=== PATIENT | female | born 1980 | race African-American/Black ===

== ENCOUNTER 2017-05-02 14:45 | Emergency (ER) | payer MEDICARE, OTHER ==
[~2017-05-02 14:45] MED LIST: PREN1CHW7 PO; TERC.4%V VAGINAL
[2017-05-02 14:46] VITALS: BP 122/71; PULSE 86; RESP 19; TEMP 98.1; O2SAT 99
[2017-05-02] MEDS ORDERED: NON-500T10 PO (17:25)
[2017-05-02] MEDS ORDERED: TYLETAB34 PO (17:51)
[2017-05-02] MEDS ORDERED: MACR100C2 PO (17:51)
== END 2017-05-02 17:10 | disposition left against medical advice (07) ==
LOC: NED 14:45
DX: Z53.21 Procedure and treatment not carried out due to patient leaving prior to being seen by health care provider (principal)
CPT/HCPCS: 99281

== ENCOUNTER 2017-05-02 15:50 | Emergency (ER) | payer MEDICARE, OTHER ==
[~2017-05-02] VITALS: Ht 152.4 cm; Wt 44.4 kg
[2017-05-02 15:57] VITALS: BP 109/54; PULSE 83; TEMP 98.7; O2SAT 100
[2017-05-02 16:50] LABS: BLOOD, URINE SMALL (NEG); GLUCOSE,URINE NEG (NEG); KETONE, URINE NEG (NEG); NITRITE,URINE NEG (NEG); PH, URINE 6.5 (5.0-8.5)
[2017-05-02 16:58] LABS: METHOD OF COLLECTION CLEAN CATCH; URINE COLOR YELLOW (YELLW/STRAW)
[2017-05-02 17:00] LABS: BACTERIA, URINE FEW /hpf; COMMENT (UR) CULTURE INDICATED; CULTURE IF INDICATED CULTURE INDICATED
[2017-05-02 17:01] LABS: COMMENT2 (UR) MUCOUS PRESENT
[2017-05-02] MEDS ORDERED: NON-500T10 PO (17:25)
[2017-05-02] MEDS ORDERED: MACR100C2 PO (17:51)
[2017-05-02] MEDS ORDERED: TYLETAB34 PO (17:51)
--- NOTE | 2017-05-02 17:52 | PD ---
HPI . Left low back pain Chief Complaint: Related Problem Time Seen by Provider: 17:16 Travel History International Travel<30 days: No Contact w/Intl Traveler<30days: No Traveled to known affect area: No History of Present Illness HPI The patient presents with a chief complaint of left low back pain. Onset was a couple days ago. She denies any known injury. She does state that the pain is exacerbated by movement. Pain has been unrelieved by Tylenol. She states that she has had no urinary difficult time getting comfortable in the lying position and is thus having trouble sleeping. She rates the pain 10/10. She denies any urinary tract symptoms such as dysuria, frequency or urgency. She is 11 weeks but denies any pelvic pain, unusual discharge, vaginal bleeding. She has sought care. [facility] Past Medical History Medical History: Denies Significant Hx Diminished Hearing: No Tetanus Vaccination: Unknown Influenza Vaccination: No ?: LMP: 02/06/17 : 5 Para: 3 : 1 Past Surgical History Section: Yes Oral Surgery: Yes (right arm repair) Other Surgery: Yes Social History Alcohol Use: No Tobacco Use: Yes Substance Use: No Allergies-Medications (Allergen,Severity, Reaction): Coded Allergies: No Known Allergies (Verified , 05/02/17) Reported Meds & Prescriptions Reported Meds & Active Scripts Active Vitafol Gummies 3.33-0.333-34.8 mg ( Vit W/ Ferric Phospha) 1 Chw Chw 3 Tab PO DAILY Reported Non-Aspirin Extra Strength (Acetaminophen) 500 Mg Tab 500 Mg PO Q4-6H PRN Review of Systems Except as stated in HPI: all other systems reviewed are Neg General / Constitutional: No: Fever, Chills Gastrointestinal: No: Nausea, Vomiting, Diarrhea, Abdominal Pain Genitourinary: No: Urgency, Frequency, Dysuria, Flank Pain, Discharge, Vaginal Bleeding Musculoskeletal: Positive: Pain (left low back pain) Physical Exam Narrative GENERAL: This patient is awake and alert and in no acute distress. She obviously has pain with movement however. SKIN: Warm and dry with no rash or lesions. HEAD: Normocephalic/atraumatic. EYES: Pupils are equal. Extraocular movements are intact. NECK: Neck is supple with full range of motion. CARDIOVASCULAR: Heart sounds are normal. RESPIRATORY: Lungs are clear with good air movement throughout. ABDOMEN: Bowel sounds positive. Soft and nontender. MUSCULOSKELETAL: She is point tender just above the left posterior iliac crest. NEUROLOGICAL: Nonfocal. PSYCHIATRIC: Appropriate mood and affect. Data Data Last Documented VS Vital Signs Date Time Temp Pulse Resp B/P (MAP) Pulse Ox O2 Delivery O2 Flow Rate FiO2 05/02/17 15:57 98.7 83 109/54 (72) 100 Orders Orders Urinalysis - C+S If Indicated (05/02/17 16:14) Urine Culture (05/02/17 16:40) Ed Poc Ultrasound (05/02/17 17:16) Labs Laboratory Tests Test 05/02/17 16:40 Urine Collection Type CLEAN CATCH Urine Color YELLOW Urine Turbidity SLIGHT Urine pH 6.5 Urine Specific [place] 1.021 Urine Protein TRACE mg/dL Urine Glucose (UA) NEG mg/dL Urine Ketones NEG mg/dL Urine Occult Blood SMALL Urine Nitrite NEG Urine Bilirubin NEG Urine Leukocyte Esterase MOD Urine RBC 4-9 /hpf Urine WBC 9-14 /hpf Urine Squamous Epithelial Cells 6-8 /hpf Urine Amorphous Sediment FEW Urine Bacteria FEW /hpf Microscopic Urinalysis Comment CULTURE INDICATED Urine Collection Time 1640 [facility] Medical Decision Making Medical Screen Exam Complete: Yes Emergency Medical Condition: Yes Differential Diagnosis Differential diagnosis includes but is not limited to muscular low back pain, DDD, spinal stenosis, epidural abscess, sciatica, kidney infection or stone. Narrative Course This patient presents with left low back pain. It is clearly muscular on exam. Laboratory Tests Test 05/02/17 16:40 Urine Collection Type CLEAN CATCH Urine Color YELLOW Urine Turbidity SLIGHT Urine pH 6.5 Urine Specific [place] 1.021 Urine Protein TRACE mg/dL Urine Glucose (UA) NEG mg/dL Urine Ketones NEG mg/dL Urine Occult Blood SMALL Urine Nitrite NEG Urine Bilirubin NEG Urine Leukocyte Esterase MOD Urine RBC 4-9 /hpf Urine WBC 9-14 /hpf Urine Squamous Epithelial Cells 6-8 /hpf Urine Amorphous Sediment FEW Urine Bacteria FEW /hpf Microscopic Urinalysis Comment CULTURE INDICATED Urine Collection Time 1640 She is and does have some white cells and leukocyte esterase in her urine. This will be treated with Macrobid. Procedures Procedure Narrative Emergency Department Pelvic ultrasound was performed with patient consent. The curvilinear probe was used in the transverse and sagittal views within the suprapubic region revealing single intrauterine . movement was noted. heart rate was also noted. Diagnosis Primary Impression: Low back pain Qualified Codes: M54.5 - Low back pain Additional Impression: Cystitis Patient Instructions: Acute Low Back Pain (DC), General Instructions, Urinary Tract Infection in (GEN) Scripts Acetaminophen-Codeine (Tylenol-Codeine #3) 300-30 mg Tab 1 TAB PO Q4H Y for PAIN, #15 TAB 0 Refills Prov: Maria Fernanda Sprague MD 05/02/17 Nitrofurantoin Monohydrate Macrocrystals (Macrobid) 100 Mg Cap 100 MG PO BID for Infection for 5 Days, #10 CAP 0 Refills Prov: Maria Fernanda Sprague MD 05/02/17 Disposition: 01 DISCHARGE HOME Condition: Stable Maria Fernanda Sprague MD May 02, 2017 17:52
== END 2017-05-02 18:09 | disposition home or self-care (01) ==
LOC: PHED 15:50
DX: O26.891 Other specified pregnancy related conditions, first trimester (principal); O23.11 Infections of bladder in pregnancy, first trimester; M54.5 Low back pain; B96.89 Other specified bacterial agents as the cause of diseases classified elsewhere; Z3A.11 11 weeks gestation of pregnancy; Z72.0 Tobacco use
CPT/HCPCS: 81001; 87086; 99284

== ENCOUNTER 2017-05-20 09:18 | Emergency (ER) | payer MEDICARE, OTHER ==
[~2017-05-20] VITALS: Ht 152.4 cm; Wt 42.6 kg
[~2017-05-20 09:18] MED LIST changes: -TERC.4%V VAGINAL
--- NOTE | 2017-05-20 10:22 | PD ---
HPI Chief Complaint dizziness/headache Date Seen: May 20, 2017 Time Seen: 10:05 (Jorden Wylie MD R2) Travel History International Travel<30 Days: No Contact w/Intl Traveler<30Days: No (Jorden Wylie MD R2) History of Present Illness HPI 37-year-old with BASILIA November 07 trimester ultrasound and last menstrual period on January 17, placing her in about 14-15 weeks gestation presenting with a 3 day history of mild frontal headache, lightheadedness. She also notes blurry vision off and on for the last couple days. She denies leakage of fluid. Has had some spotting but no gross blood vaginally. Denies vaginal discharge. A couple times in the last few weeks she's felt episodes of it being hard to catch her breath. Denies chest pain. She also endorses some intermittent pelvic cramping for the last few days, very mild. (Jorden Wylie MD R2) History Past Medical History Medical History: Denies Significant Hx (Jorden Wylie MD R2) Obstetric History Obstetric History All deliveries by C/S: 1st - distress 2nd - pre-eclampsia 3rd - repeat C/S (Jorden Wylie MD R2) Past Surgical History Narrative Surgical C sections (Jorden Wylie MD R2) Family History Family History: Negative (Jorden Wylie MD R2) Social History Alcohol Use: No Tobacco Use: No Substance Abuse: No (Jorden Wylie MD R2) Allergies-Medications (Allergen,Severity, Reaction): Coded Allergies: No Known Allergies (Verified , 05/16/17) Home Meds Active Scripts Vit W/ Ferric Phospha (Vitafol Gummies 3.33-0.333-34.8 mg) 1 Chw Chw, 3 TAB PO DAILY, #90 BOTTLE 11 Refills Prov:Missy Alberto 03/26/17 Discontinued Reported Medications Acetaminophen (Non-Aspirin Extra Strength) 500 Mg Tab, 500 MG PO Q4-6H Y for PAIN SCALE 1 TO 10, TAB 0 Refills 05/02/17 Discontinued Scripts Acetaminophen-Codeine (Tylenol-Codeine #3) 300-30 mg Tab, 1 TAB PO Q4H Y for PAIN, #15 TAB 0 Refills Prov:Maria Fernanda Sprague MD 05/02/17 Nitrofurantoin Monohydrate Macrocrystals (Macrobid) 100 Mg Cap, 100 MG PO BID for Infection for 5 Days, #10 CAP 0 Refills Prov:Maria Fernanda Sprague MD 05/02/17 Review of Systems Except as stated in HPI: all other systems reviewed are Neg (Jorden Wylie MD R2) Physical Exam Narrative GENERAL: Well-nourished, well-developed patient. SKIN: Warm and dry. HEAD: Normocephalic and atraumatic. EYES: No scleral icterus. No injection or drainage. ENT: No nasal drainage noted. Mucous membranes pink. Airway patent. CARDIOVASCULAR: Regular rate and rhythm without murmurs, gallops, or rubs. Auscultated reclined at 45 degrees and sitting upright. RESPIRATORY: Breath sounds equal bilaterally. No accessory muscle use. ABDOMEN/GI: Abdomen soft, non-tender, no rebound, no guarding GENITOURINARY: Normal external genitalia. Cervix closed/thick/high. FHT's: 150s EXTREMITIES: No cyanosis or edema. NEUROLOGICAL: Awake and alert. Motor and sensory grossly within normal limits. Normal speech. (Jorden Wylie MD R2) Data Data Vital Signs Reviewed: Yes (Jorden Wylie MD R2) MDM Medical Record Reviewed: Yes Narrative Course / MDM 37 yo at 14-15 weeks presenting with lightheadedness, mild headache, and intermittent cramping suggestive of dehydration #1 IUP FHTs reassuring - Establishing with [facility] on 05/21. Advised to keep that appointment. #2 dehydration UA not suggestive of UTI, exam benign, cervix closed. Dehydration would explain all symptoms. - Oral hydration - Keep OB f/u as above #3 vaginal spotting By history some spotting for a few days, no gross bleeding, no blood on glove during exam - F/u as outpatient (Jorden Wylie MD R2) Attending Attestation I personally evaluated and examined the patient with the resident. I performed all baer decision making portions. (Missy Gooden MD) Diagnosis Diagnosis: Primary Impression: Dehydration Additional Impressions: Vaginal spotting Qualified Codes: Z3A.14 - 14 weeks gestation of Ruled Out: Cystitis, labor Disposition: DISCHARGE HOME Condition: Good Patient Instructions: General Instructions, Diet (GEN) Jorden Wylie MD R2 May 20, 2017 10:22 Missy Gooden MD May 20, 2017 15:41
[2017-05-20 10:48] LABS: BACTERIA, URINE RARE /hpf; BLOOD, URINE NEG (NEG); COMMENT (UR) CULT NOT INDICATED; CULTURE IF INDICATED CULT NOT INDICATED; GLUCOSE,URINE NEG (NEG); KETONE, URINE NEG (NEG); NITRITE,URINE NEG (NEG); SQUAMOUS EPITHELIAL CELL URINE 3 /hpf (0-5); URINE COLOR YELLOW (YELLW/STRAW)
[2017-05-21] MEDS ORDERED: FERRTAB2 PO (10:32)
== END 2017-05-20 10:49 | disposition home or self-care (01) ==
LOC: HOBED 09:18
DX: O26.892 Other specified pregnancy related conditions, second trimester (principal); E86.0 Dehydration; R42 Dizziness and giddiness; R51 Headache; Z3A.14 14 weeks gestation of pregnancy
CPT/HCPCS: 81001; 99283

== ENCOUNTER → 2017-07-01 | Outpatient (CLI) | payer MEDICARE, OTHER ==
[~2017-07-01] MED LIST changes: +FERRTAB2 PO
== END ==
LOC: HPND 10:32
PROVIDERS: ATTEND Obstetrics & Gynecology
DX: O09.522 Supervision of elderly multigravida, second trimester (principal); O09.212 Supervision of pregnancy with history of pre-term labor, second trimester
CPT/HCPCS: 76811; 76817

== ENCOUNTER → 2017-07-10 | Outpatient (CLI) | payer MEDICARE, OTHER | LOC: HPND 09:54 | PROVIDERS: ATTEND Obstetrics & Gynecology | DX: O09.522 Supervision of elderly multigravida, second trimester (principal); O09.212 Supervision of pregnancy with history of pre-term labor, second trimester | CPT/HCPCS: 76815; 76817 ==

== ENCOUNTER 2017-07-28 20:35 | Emergency (ER) | payer MEDICARE, OTHER ==
--- NOTE | 2017-07-28 21:03 | PD ---
HPI Chief Complaint Pelvic and rectal pressure Date Seen: Jul 28, 2017 Time Seen: 20:57 Travel History International Travel<30 Days: No Contact w/Intl Traveler<30Days: No Known Affected Area: No History of Present Illness HPI 37-year-old who is at 24 weeks and 3 days comes in due to pelvic and rectal pressure. Patient's partner found her in the shower bent over complaining of intense rectal and pelvic pressure and brought her in to the emergency department. Patient has had a history of 3 prior deliveries and discussion has been made in the clinic regarding initiating [place], the patient has not yet started. Patient is [facility] at [facility] and her last cervical length was 3 cm without funneling on July 10. Weeks Gestation: 24 (24.3) Para: 3 : 7 Miscarriage: 3 History Past Medical History Medical History: Denies Significant Hx Obstetric History Obstetric History 3 prior sections with deliveries at 32 weeks, 34 weeks, at 36 weeks Past Surgical History Narrative Surgical section 3 Family History Family History: Negative Social History Alcohol Use: No Tobacco Use: No Substance Abuse: No Allergies-Medications (Allergen,Severity, Reaction): Coded Allergies: No Known Allergies (Verified Adverse Reaction, Unknown, 06/18/17) Home Meds Active Scripts Multi-Vit/Iron-Folic [id number] C (Ferralet) 90-1-0.012-120 mg Tab, 1 TAB PO DAILY, #30 BOTTLE 11 Refills Prov:Missy Alberto 05/21/17 Vit W/ Ferric Phospha (Vitafol Gummies 3.33-0.333-34.8 mg) 1 Chw Chw, 3 TAB PO DAILY, #90 BOTTLE 11 Refills Prov:Missy Alberto 03/26/17 Review of Systems Except as stated in HPI: all other systems reviewed are Neg Physical Exam Narrative GENERAL: Well-nourished, well-developed patient. SKIN: Warm and dry. HEAD: Normocephalic and atraumatic. EYES: No scleral icterus. No injection or drainage. ENT: No nasal drainage noted. Mucous membranes pink. Airway patent. NECK: Supple, trachea midline. No JVD. CARDIOVASCULAR: Regular rate and rhythm without murmurs, gallops, or rubs. RESPIRATORY: Breath sounds equal bilaterally. No accessory muscle use. ABDOMEN/GI: Abdomen soft, non-tender, bowel sounds present, no rebound, no guarding Gravid to [23-] weeks size Fundal Height: [-] GENITOURINARY: External Genitalia: intact and normal in appearance BUS glands: [-] Normal, fibronectin collected Cervix: [-] Posterior Dilatation: [-] Closed Effacement: [-] Long Station: [-] High Presentation: [-] Unable to feel presentation Membranes: [intact or ruptured] intact Uterine Contractions: [-] Absent FHT's: Category: [-] 1 Baseline: [-] 130 Reactive: [-] Moderate Variability: [-] Moderate Decels: [-] Absent EXTREMITIES: No cyanosis or edema. BACK: Nontender without obvious deformity. No CVA tenderness. NEUROLOGICAL: Awake and alert. Motor and sensory grossly within normal limits. Five out of 5 muscle strength in all muscle groups. Normal speech. Data Data Vital Signs Reviewed: Yes Orders Orders Vital Signs (Adult) .ON ADMISSION (07/28/17 20:54) ^ Labor Status (07/28/17 20:54) ^ Non Stress Test (07/28/17 20:54) Fibronectin (07/28/17 20:54) Labs Laboratory Tests Test 07/28/17 21:00 Urine Color YELLOW Urine Turbidity CLEAR Urine pH 7.0 Urine Specific [place] 1.016 Urine Protein 30 mg/dL Urine Glucose (UA) NEG mg/dL Urine Ketones 10 mg/dL Urine Occult Blood TRACE Urine Nitrite NEG Urine Bilirubin NEG Urine Urobilinogen LESS THAN 2.0 MG/DL Urine Leukocyte Esterase LARGE Urine RBC 2 /hpf Urine WBC 3 /hpf Urine Squamous Epithelial Cells 10 /hpf Urine Mucus FEW /lpf Microscopic Urinalysis Comment CULT NOT INDICATED Fibronectin NEGATIVE [facility] Medical Record Reviewed: Yes Plan 37-year-old at 24 weeks 3 days with pelvic pressure most likely due to constipation secondary to iron replacement therapy, , and vitamins. Discussed over the counter medications including Miralax, Colace, Sennakot, and Dulcolax Patient is at high risk for delivery given her history and she is due to [place] tomorrow. fibronectin is negative Macrobid twice daily for 7 days was prescribed due to results of the urinalysis Diagnosis Diagnosis: Primary Impression: 24 weeks gestation of Additional Impressions: Pelvic pressure in History of delivery, currently in second trimester Urinary tract infection affecting care of mother in second trimester, antepartum Disposition: 01 DISCHARGE HOME Scripts Nitrofurantoin Monohydrate Macrocrystals (Macrobid) 100 Mg Cap 100 MG PO BID for Infection for 7 Days, #14 CAP 0 Refills Prov: Libia Coelho MD 07/28/17 Libia Coelho MD Jul 28, 2017 21:03
[2017-07-28 21:50] LABS: BILIRUBIN, URINE NEG (NEG); BLOOD, URINE TRACE (NEG); GLUCOSE,URINE NEG (NEG); KETONE, URINE 10 mg/dL (NEG); MUCUS URINE FEW /lpf (OCC); NITRITE,URINE NEG (NEG); SQUAMOUS EPITHELIAL CELL URINE 10 /hpf (0-5); URINE COLOR YELLOW (YELLW/STRAW); URINE LEUKOCYTE ESTERASE LARGE (NEG)
[2017-07-28] MEDS ORDERED: MACR100C2 PO (22:07)
[2017-07-29] MEDS ORDERED: MAKE250I IM (13:06)
[2017-08-04] MEDS ORDERED: MAKE250I IM ×2 (13:31→13:32)
== END 2017-07-28 23:03 | disposition home or self-care (01) ==
LOC: HOBED 20:35
DX: O09.212 Supervision of pregnancy with history of pre-term labor, second trimester (principal); O23.43 Unspecified infection of urinary tract in pregnancy, third trimester; Z3A.24 24 weeks gestation of pregnancy
CPT/HCPCS: 81001; 82731; 99283

== ENCOUNTER → 2017-08-04 | Outpatient (CLI) | payer MEDICARE, OTHER ==
[~2017-08-04] MED LIST changes: +CITA10TA4 PO; +CITA20TA4 PO; +MACR100C2 PO; +MAKE250I IM
== END ==
LOC: HPND 09:30
PROVIDERS: ATTEND Obstetrics & Gynecology
DX: O09.522 Supervision of elderly multigravida, second trimester (principal); O09.212 Supervision of pregnancy with history of pre-term labor, second trimester
CPT/HCPCS: 76816; 76817

== ENCOUNTER 2017-09-01 14:34 | Emergency (ER) | payer MEDICARE, OTHER ==
--- NOTE | 2017-09-01 15:42 | PD ---
HPI Chief Complaint rule out PTL Date Seen: Sep 01, 2017 Time Seen: 15:13 Travel History International Travel<30 Days: No Contact w/Intl Traveler<30Days: No Known Affected Area: No History of Present Illness HPI 37 y/o at 29/3 weeks presents from recommendation from [facility] to rule out pre-term labor. Pt has a history of pre-term deliveries and was regular ultrasounds. She had one performed today, which showed cervical length of 19mm. Their recommendations was to monitor for contractions today and then FFN tomorrow followed by repeating cervical length. Has had three pre-term deliveries in the past, that have been complicated by pre -eclampsia and IUGR. She sees [facility]. She is on Nadeen weekly injections. She endorses some cramping, especially at night. Denies any vaginal bleeding, loss of fluids, contractions. Endorses good movement. Weeks Gestation: 29 Para: 3 : 7 Miscarriage: 3 History Past Medical History Narrative Medical Depression Obstetric History Obstetric History C/S-2003 at 35w C/S-2006 at 36w C/S-2013 at 32w 3 miscarriages Past Surgical History Narrative Surgical C-sections x3 Right arm fracture Family History Family History: Negative Social History Alcohol Use: No Tobacco Use: No Substance Abuse: No Allergies-Medications (Allergen,Severity, Reaction): Coded Allergies: No Known Allergies (Verified Adverse Reaction, Unknown, 08/10/17) Home Meds Active Scripts Citalopram (Citalopram) 20 Mg Tab, 20 MG PO DAILY for Control Depression, #30 TAB 3 Refills Prov:Sheldon Lazaro MD 08/10/17 Citalopram (Citalopram) 10 Mg Tab, 10 MG PO DAILY for Control Depression, #7 TAB 0 Refills Prov:Sheldon Lazaro MD 08/10/17 Multi-Vit/Iron-Folic [id number] C (Ferralet) 90-1-0.012-120 mg Tab, 1 TAB PO DAILY, #30 BOTTLE 11 Refills Prov:Missy Alberto 05/21/17 Vit W/ Ferric Phospha (Vitafol Gummies 3.33-0.333-34.8 mg) 1 Chw Chw, 3 TAB PO DAILY, #90 BOTTLE 11 Refills Prov:Missy Alberto FERMIN 03/26/17 Reported Medications Hydroxyprogesterone Caproate Inj (Slime Inj) 250 Mg/Ml Inj, 250 MG IM WEEKLY for , #1 VIAL 0 Refills 08/04/17 Review of Systems General / Constitutional: Weight Gain, No: Fever, Weight Loss, Chills, Other Eyes: No: Diploplia, Blurred Vision, Visual changes, Pain, Photophobia HENT: No: Headaches, Vertigo, Lightheadedness Cardiovascular: No: Irregular Rhythm, Chest Pain or Discomfort, Palpitations, Tachycardia, Syncope, Varicosities, Edema, Cyanosis Respiratory: No: Cough, Short of Breath, Other Gastrointestinal: No: Nausea, Vomiting, Diarrhea Genitourinary: No: Urgency, Frequency, Dysuria, Nocturia, Decreased Urinary Output, Oliguria, Incontinence, Pelvic Pain, Discharge, Menorrhagia, Vaginal Bleeding Musculoskeletal: No: Limited ROM, Weakness, Cramping, Edema, Pain Skin: No Rash, No Itching, No Dryness, No Lumps, No Change in Pigmentation, No Change in Nails, No Alopecia, No Lesions Neurologic: No: Weakness, Dizziness, Syncope, Focal Abnormalities, Coordination Problem, Headache, Slurred Speech, Seizures Psychiatric: No: Depression, Suicidal Ideations, Homicidal Ideation Endocrine: No: Heat Intolerance, Cold Intolerance, Polydipsia, Polyuria, Other Physical Exam Narrative GENERAL: Well-nourished, well-developed patient. SKIN: Warm and dry. HEAD: Normocephalic and atraumatic. EYES: No scleral icterus. No injection or drainage. ENT: No nasal drainage noted. Mucous membranes pink. Airway patent. NECK: Supple, trachea midline. No JVD. CARDIOVASCULAR: Regular rate and rhythm without murmurs, gallops, or rubs. RESPIRATORY: Breath sounds equal bilaterally. No accessory muscle use. ABDOMEN/GI: Abdomen soft, non-tender, bowel sounds present, no rebound, no guarding Gravid to 29 weeks size GENITOURINARY: External Genitalia: intact and normal in appearance Dilatation: [-] Effacement: [-] Station: [-] Presentation: [-] Membranes: [intact or ruptured] Uterine Contractions: none FHT's: Category: 1 Baseline: 140 Reactive: yes Variability: moderate Decels: none EXTREMITIES: No cyanosis or edema. BACK: Nontender without obvious deformity. No CVA tenderness. NEUROLOGICAL: Awake and alert. Motor and sensory grossly within normal limits. Five out of 5 muscle strength in all muscle groups. Normal speech. Data Data Vital Signs Reviewed: Yes [facility] Medical Record Reviewed: Yes Interpretation(s) 37 y/o at 29/3 weeks presents from [facility] for recommendations to rule out contractions. Category 1 FHT-irritability present, no contractions. -Discharge home in stable condition -Per MFM, return tomorrow for FFN due to transvaginal ultrasound -Return to ED if vaginal bleeding, gush of fluids, frequent contractions - labor precautions -F/u with [facility] Diagnosis Diagnosis: Primary Impression: 29 weeks gestation of Disposition: DISCHARGE HOME Condition: Stable Patient Instructions: Labor (ED), General Instructions Semaj Chambers MD Sep 01, 2017 15:42
== END 2017-09-01 16:28 | disposition home or self-care (01) ==
LOC: HOBED 14:34
DX: O26.93 Pregnancy related conditions, unspecified, third trimester (principal); Z3A.29 29 weeks gestation of pregnancy
CPT/HCPCS: 99283

== ENCOUNTER → 2017-09-01 | Outpatient (CLI) | payer MEDICARE, OTHER ==
[~2017-09-01] MED LIST changes: -MACR100C2 PO
== END ==
LOC: HPND 09:55
PROVIDERS: ATTEND Obstetrics & Gynecology
DX: O09.523 Supervision of elderly multigravida, third trimester (principal); O40.3XX0 Polyhydramnios, third trimester, not applicable or unspecified; O43.193 Other malformation of placenta, third trimester
CPT/HCPCS: 76816; 76817

== ENCOUNTER 2017-09-09 11:33 | Emergency (ER) | payer MEDICARE, OTHER ==
[2017-09-09] VITALS (11 sets, daily range): BP systolic 97; BP diastolic 47; PULSE 70–81; RESP 17–18; TEMP 98.7
[2017-09-09] MEDS ORDERED: LACTATED RINGER'S 1000 ML INJ 1,000 ML IV ONE (12:45)
[2017-09-09] MEDS ORDERED: ONDANSETRON HCL 4 MG/2 ML VIAL IV PUSH ONE (12:45)
--- NOTE | 2017-09-09 12:48 | PD ---
HPI Chief Complaint Nausea and vomiting with pelvic pain Date Seen: Sep 09, 2017 Travel History International Travel<30 Days: No Contact w/Intl Traveler<30Days: No Known Affected Area: No History of Present Illness HPI Ms. Coronado is a 37-year-old presenting at 30/4 weeks gestation with nausea and vomiting as well as pelvic pain. Patient states that last night after dinner she had one episode of nonbloody vomiting with 2 additional episodes this morning. She has felt nauseous over this time and has been unable to keep anything down. She reports that she did have morning sickness throughout her first trimester, but it did resolve on its own. As for her pelvic pain she rates at 8/10 with the worst pain being in her right hip crease that is positional in nature. She feels like it is a "electric shock" throughout her pelvis. She also feels abdominal pressure and the top of her abdomen as well. Denies having any contractions, but "doesn't exactly know what they feel like." She does have a history of deliveries with C-sections at 32, 35, and 36 weeks gestation. She states that in her previous pregnancies were complicated by gestational diabetes, IUGR, and preeclampsia. However she states that during this her course has been uncomplicated. Due to her deliveries she is on bedrest and [place] per chart review. Otherwise she has no complaints and denies any fevers, chills, shortness breath, chest pain, or calf tenderness. Weeks Gestation: 30 Para: 3 : 7 History Past Medical History Narrative Medical Depression and anxiety on citalopram Obstetric History Obstetric History C/S-2003 at 35w C/S-2006 at 36w C/S-2013 at 32w Patient reports IUGR, gestational diabetes, and preeclampsia, but is unaware which each diagnosis was associated with. 3 miscarriages Past Surgical History Narrative Surgical 3 C-sections, uncomplicated Right arm fixation Family History Narrative Family History No family medical history reported Social History Narrative Social History Patient reports no smoking, alcohol, or illicit drug abuse during . Allergies-Medications (Allergen,Severity, Reaction): Coded Allergies: No Known Allergies (Verified Adverse Reaction, Unknown, 08/10/17) Home Meds Active Scripts Citalopram (Citalopram) 20 Mg Tab, 20 MG PO DAILY for Control Depression, #30 TAB 3 Refills Prov:Sheldon Lazaro MD 08/10/17 Citalopram (Citalopram) 10 Mg Tab, 10 MG PO DAILY for Control Depression, #7 TAB 0 Refills Prov:Sheldon Lazaro MD 08/10/17 Multi-Vit/Iron-Folic [id number] C (Ferralet) 90-1-0.012-120 mg Tab, 1 TAB PO DAILY, #30 BOTTLE 11 Refills Prov:Missy Alberto 05/21/17 Vit W/ Ferric Phospha (Vitafol Gummies 3.33-0.333-34.8 mg) 1 Chw Chw, 3 TAB PO DAILY, #90 BOTTLE 11 Refills Prov:Missy Alberto 03/26/17 Reported Medications Hydroxyprogesterone Caproate Inj ([place] Inj) 250 Mg/Ml Inj, 250 MG IM WEEKLY for , #1 VIAL 0 Refills 08/04/17 Review of Systems Except as stated in HPI: all other systems reviewed are Neg (Per HPI) Physical Exam Narrative GENERAL: Well-nourished, well-developed patient. SKIN: Warm and dry. HEAD: Normocephalic and atraumatic. EYES: No scleral icterus. No injection or drainage. ENT: No nasal drainage noted. Mucous membranes pink. Airway patent. NECK: Supple, trachea midline. No JVD. CARDIOVASCULAR: Regular rate and rhythm without murmurs, gallops, or rubs. RESPIRATORY: Breath sounds equal bilaterally. No accessory muscle use. BREASTS: Bilateral exam showed no masses , no retractions, no nipple discharge. ABDOMEN/GI: Abdomen soft, non-tender, bowel sounds present, no rebound, no guarding Gravid to 30 weeks size FHT's: Category:1 Baseline: 130s Reactive: Positive Variability: Moderate Decels: None EXTREMITIES: No cyanosis or edema. BACK: Nontender without obvious deformity. No CVA tenderness. NEUROLOGICAL: Awake and alert. Motor and sensory grossly within normal limits. Five out of 5 muscle strength in all muscle groups. Normal speech. Data Data Vital Signs Reviewed: Yes Orders Orders Vital Signs (Adult) .ON ADMISSION (09/09/17 12:32) ^ Labor Status (09/09/17 12:32) ^ Non Stress Test (09/09/17 12:32) ^ Hydration (09/09/17 12:32) Ondansetron Inj (Zofran Inj) (09/09/17 12:45) Lr (Bolus) Inj (09/09/17 12:45) MDM Medical Record Reviewed: Yes Plan Ms. Coronado is a 37-year-old presenting at 30/4 weeks gestation with nausea and vomiting as well as pelvic pain. 1. IUP at 30 weeks -Continue routine antepartum care -Encourage oral hydration -C category 1, reassuring 2. Nausea with Vomiting -Patient given 1 L LR bolus -Zofran 4 mg once -Plan for oral trial afterwards 3. Round ligament pain -Tylenol x1 ordered -Educated patient on round ligament pain -Encourage positional avoidance and heating pads as tolerated -Encourage patient to use Tylenol for pain control, educated to avoid all NSAIDs Discharge: Patient likely to be discharged after tolerating oral challenge. DW: Dr. Coelho Update 1430: Patient is tolerating water and edson starr PO. She is now daksha every 7- 10 minutes. Her headache did not respond and is requesting further medication. - Fibronectin ordered for labor evaluation -Fioricet ordered for headache Update 1550: - fibronectin negative -Headache improving with Fioricet -N/V improving as she is able to tolerate oral fluids. She continues to refuse oral challenge with solid foods, but does state she feels well enough to be discharged. -Patient to be discharged home with close follow up with her OBGYN. Patient also give Zofran prescription to assist with N/V. Diagnosis Diagnosis: Primary Impression: 30 weeks gestation of Additional Impression: Nausea and vomiting Qualified Codes: R11.2 - Nausea with vomiting, unspecified Disposition: 01 DISCHARGE HOME Condition: Stable Patient Instructions: General Instructions, Abdominal Pain in (ED), Nausea and Vomiting in (ED), Diet (GEN) Benoit Vizcarra MD R2 Sep 09, 2017 12:47
[2017-09-09] MEDS ORDERED: ACETAMINOPHEN 325 MG TAB PO ONE (13:30)
[2017-09-09] MEDS ORDERED: ACETAMIN 325 MG/BUTALBITAL 50 MG/CAFFEINE 40 MG TAB PO ONE (15:00)
[2017-09-09] MEDS ORDERED: ZOFR4TAB3 SL (15:58)
== END 2017-09-09 19:09 | disposition home or self-care (01) ==
LOC: HOBED 11:33
DX: R11.2 Nausea with vomiting, unspecified (principal); Z3A.36 36 weeks gestation of pregnancy; R10.2 Pelvic and perineal pain; F32.9 Major depressive disorder, single episode, unspecified; F41.9 Anxiety disorder, unspecified
CPT/HCPCS: 82731; 96374; 99284; J2405; J7120

== ENCOUNTER 2017-09-19 20:18 | Emergency (ER) | payer MEDICARE, OTHER ==
[~2017-09-19] VITALS: Ht 152.4 cm; Wt 53.1 kg
[~2017-09-19 20:18] MED LIST changes: +ZOFR4TAB3 SL
--- NOTE | 2017-09-19 21:25 | PD ---
HPI Chief Complaint Nausea vomiting for 3 days, pain at the top of her fundus, decreased movement Date Seen: Sep 19, 2017 Time Seen: 21:13 Travel History International Travel<30 Days: No Contact w/Intl Traveler<30Days: No Known Affected Area: No History of Present Illness HPI Patient is a 37-year-old who is at 32 weeks gestation who comes in for a variety of symptoms. She complains of nausea and vomiting for the past 3 days but has had emesis only 2 times. Patient has had nausea vomiting in early treated with Zofran but she has no medications presently. She has had a headache off and on for about 3 days only minimally helped with over-the- counter Tylenol. Additionally she has sharp pain at the top of her fundus that worsens when she gets up to walk. She is denying contractions but has a history of a prior delivery, one at 32 weeks 1 at 36 weeks and 1 at 38 weeks. Patient is currently receiving Slime injections weekly with her last fibronectin on September 09 which was negative. Patient has been diagnosed with polyhydramnios with her last amniotic fluid index being 28. Weeks Gestation: 32 Para: 3 : 7 History Past Medical History Narrative Medical Negative Obstetric History Obstetric History 32 week delivery, section, 4 lbs. 10 oz. 35 week delivery, , 5 pounds 36-38 week delivery, section, 8 pounds Past Surgical History Narrative Surgical section 3 Family History Family History: Negative Social History Alcohol Use: No Tobacco Use: No Substance Abuse: No Allergies-Medications (Allergen,Severity, Reaction): Coded Allergies: No Known Allergies (Verified Adverse Reaction, Unknown, 09/19/17) Home Meds Active Scripts Vit W/ Ferric Phospha (Vitafol Gummies 3.33-0.333-34.8 mg) 1 Chw Chw, 3 TAB PO DAILY, #90 BOTTLE 11 Refills Prov:Missy Alberto 03/26/17 Reported Medications Hydroxyprogesterone Caproate Inj ([place] Inj) 250 Mg/Ml Inj, 250 MG IM WEEKLY for , #1 VIAL 0 Refills 08/04/17 Discontinued Scripts Ondansetron Odt (Zofran Odt) 4 Mg Tab, 4 MG SL Q6HR Y for Nausea/Vomiting, #30 TAB 0 Refills Prov:Benoit Vizcarra MD R2 09/09/17 Citalopram (Citalopram) 20 Mg Tab, 20 MG PO DAILY for Control Depression, #30 TAB 3 Refills Prov:Sheldon Lazaro MD 08/10/17 Citalopram (Citalopram) 10 Mg Tab, 10 MG PO DAILY for Control Depression, #7 TAB 0 Refills Prov:Sheldon Lazaro MD 08/10/17 Multi-Vit/Iron-Folic [id number] C (Ferralet) 90-1-0.012-120 mg Tab, 1 TAB PO DAILY, #30 BOTTLE 11 Refills Prov:Missy Alberto 05/21/17 Physical Exam Narrative GENERAL: Well-nourished, well-developed patient. SKIN: Warm and dry. HEAD: Normocephalic and atraumatic. EYES: No scleral icterus. No injection or drainage. NECK: Supple, trachea midline. No JVD. CARDIOVASCULAR: Regular rate and rhythm without murmurs, gallops, or rubs. RESPIRATORY: Breath sounds equal bilaterally. No accessory muscle use. ABDOMEN/GI: Abdomen soft, non-tender, bowel sounds present, no rebound, no guarding Gravid to [-] weeks size 32 Fundal Height: [-] GENITOURINARY: External Genitalia: intact and normal in appearance BUS glands: [-] Normal Cervix: [-] Posterior Dilatation: [-] Closed Effacement: [-] 50 Station: [-] -3 Presentation: [-] Vertex Membranes: [intact or ruptured] Uterine Contractions: [-] Irregular FHT's: Category: [-] 1 Baseline: [-] 140 Reactive: [-] Moderate Variability: [-] Moderate Decels: [-] Absent EXTREMITIES: No cyanosis or edema. BACK: Nontender without obvious deformity. No CVA tenderness. NEUROLOGICAL: Awake and alert. Motor and sensory grossly within normal limits. Five out of 5 muscle strength in all muscle groups. Normal speech. Urine dip negative ketones negative protein Data Data Vital Signs Reviewed: Yes MDM Medical Record Reviewed: Yes Plan 37-year-old at 32 weeks gestation with nausea, no signs of dehydration at this time and mild headache Patient has no anti-emetics she was given a prescription for Phenergan. Patient is driving herself and her child home so is reluctant to give her an IV or an IM dose of Phenergan Continue with weekly [place], cervix is closed at this time with a negative fibronectin on the Patient has follow-up rate of growth ultrasounds with OB diagnostics Diagnosis Diagnosis: Primary Impression: 32 weeks gestation of Additional Impressions: History of delivery, currently in third trimester Polyhydramnios affecting in third trimester Nausea & vomiting Multigravida of advanced maternal age in third trimester Disposition: DISCHARGE HOME Libia Coelho MD Sep 19, 2017 21:25
== END 2017-09-19 21:37 | disposition home or self-care (01) ==
LOC: HOBED 20:18
DX: O40.3XX0 Polyhydramnios, third trimester, not applicable or unspecified (principal); O21.2 Late vomiting of pregnancy; O09.523 Supervision of elderly multigravida, third trimester; Z3A.32 32 weeks gestation of pregnancy
CPT/HCPCS: 59025

== ENCOUNTER → 2017-09-22 | Outpatient (CLI) | payer MEDICARE, OTHER ==
[~2017-09-22] MED LIST changes: -CITA10TA4 PO; -CITA20TA4 PO; -FERRTAB2 PO; -ZOFR4TAB3 SL
== END ==
LOC: HPND 10:38
PROVIDERS: ATTEND Obstetrics & Gynecology
DX: O40.3XX0 Polyhydramnios, third trimester, not applicable or unspecified (principal); O36.5930 Maternal care for other known or suspected poor fetal growth, third trimester, not applicable or unspecified
CPT/HCPCS: 76816

== ENCOUNTER 2017-10-04 04:51 | Emergency (ER) | payer MEDICARE, OTHER ==
[2017-10-04 05:08] VITALS: BP 94/39; PULSE 121
[2017-10-04 05:15] VITALS: RESP 18
[2017-10-04] MEDS ORDERED: LACTATED RINGER'S 1000 ML INJ 1,000 ML IV SCH (05:21)
[2017-10-04] MEDS ORDERED: LACTATED RINGER'S 1000 ML INJ 1,000 ML IV ONE (05:30)
[2017-10-04] MEDS ORDERED: ONDANSETRON HCL 4 MG/2 ML VIAL IV PUSH ONE (05:30)
--- NOTE | 2017-10-04 05:32 | PD ---
HPI Chief Complaint Nausea vomiting, contractions Date Seen: Oct 04, 2017 Time Seen: 05:25 Travel History International Travel<30 Days: No Contact w/Intl Traveler<30Days: No Known Affected Area: No History of Present Illness HPI 37-year-old who is at 34 weeks 4 days comes in complaining of nausea for several hours and unable to keep down food or beverages and along with emesis Patient has been seen in the OB ED with similar symptoms several times but does not feel her antiemetic medication as prescribed. Patient has a history of 3 prior deliveries. One baby was 4 lbs. 10 oz., next was 5 pounds, next was 8 pounds. She has history of 3 prior deliveries and has been seen for a consult and she would like to get her tubes tied. She states she has had intermittent contractions for the past several hours and states that she had a cervical exam last week in the office that showed her cervix was 2 cm. Weeks Gestation: 34 Para: 3 : 7 : 3 History Past Medical History Narrative Medical Anemia Obstetric History Obstetric History 3 prior sections, see HPI This with polyhydramnios, patient was taking weekly [place] last injection was 1 week ago Past Surgical History Narrative Surgical 3 Family History Family History: Negative Social History Alcohol Use: No Tobacco Use: No Substance Abuse: No Allergies-Medications (Allergen,Severity, Reaction): Coded Allergies: No Known Allergies (Verified Adverse Reaction, Unknown, 09/19/17) Home Meds Active Scripts Vit W/ Ferric Phospha (Vitafol Gummies 3.33-0.333-34.8 mg) 1 Chw Chw, 3 TAB PO DAILY, #90 BOTTLE 11 Refills Prov:Missy Alberto 03/26/17 Reported Medications Hydroxyprogesterone Caproate Inj (Slime Inj) 250 Mg/Ml Inj, 250 MG IM WEEKLY for , #1 VIAL 0 Refills 08/04/17 Review of Systems Except as stated in HPI: all other systems reviewed are Neg HENT: Headaches Physical Exam Narrative GENERAL: Well-nourished, well-developed patient. SKIN: Warm and dry. HEAD: Normocephalic and atraumatic. EYES: No scleral icterus. No injection or drainage. ENT: No nasal drainage noted. Mucous membranes pink. Airway patent. NECK: Supple, trachea midline. No JVD. CARDIOVASCULAR: Regular rate and rhythm without murmurs, gallops, or rubs. RESPIRATORY: Breath sounds equal bilaterally. No accessory muscle use. ABDOMEN/GI: Abdomen soft, non-tender, bowel sounds present, no rebound, no guarding Gravid to [-] weeks size 32 Fundal Height: [-] GENITOURINARY: External Genitalia: intact and normal in appearance BUS glands: [-] Normal Cervix: [-] Posterior Dilatation: [-] Fingertip Effacement: [-] 50 Station: [-] -3 Presentation: [-] Vertex Membranes: [intact or ruptured] intact by a mixture Uterine Contractions: [-] Irregular, occasional FHT's: Category: [-] 1 Baseline: [-] 140 Reactive: [-] Moderate Variability: [-] Moderate Decels: [-] Absent EXTREMITIES: No cyanosis or edema. BACK: Nontender without obvious deformity. No CVA tenderness. NEUROLOGICAL: Awake and alert. Motor and sensory grossly within normal limits. Five out of 5 muscle strength in all muscle groups. Normal speech. Data Data Vital Signs Reviewed: Yes Orders Orders Vital Signs (Adult) .ON ADMISSION (10/04/17 05:21) ^ Labor Status (10/04/17 05:21) Urinalysis - C+S If Indicated (10/04/17 05:21) ^ Non Stress Test (10/04/17 05:21) ^ Hydration (10/04/17 05:21) Cbc No Diff, Includes Plts (10/04/17 05:21) Basic Metabolic Panel (Bmp) (10/04/17 05:21) Lactated Ringer's 1000 Ml Inj (Lr 1000 M (10/04/17 05:21) Ondansetron Inj (Zofran Inj) (10/04/17 05:30) Drug Screen, Random Urine (10/04/17 05:21) Lr (Bolus) Inj (10/04/17 05:30) Labs Laboratory Tests Test 10/04/17 05:25 10/04/17 06:30 White Blood Count 10.8 TH/MM3 Red Blood Count 3.43 MIL/MM3 Hemoglobin 10.7 GM/DL Hematocrit 29.3 % Mean Corpuscular Volume 85.5 FL Mean Corpuscular Hemoglobin 31.1 PG Mean Corpuscular Hemoglobin Concent 36.3 % Red Cell Distribution Width 13.1 % Platelet Count 332 TH/MM3 Mean Platelet Volume 7.5 FL Blood Urea Nitrogen 6 MG/DL Creatinine 0.79 MG/DL Random Glucose 127 MG/DL Calcium Level 8.7 MG/DL Sodium Level 140 MEQ/L Potassium Level 3.8 MEQ/L Chloride Level 106 MEQ/L Carbon Dioxide Level 24.3 MEQ/L Anion Gap 10 MEQ/L Estimat Glomerular Filtration Rate 100 ML/MIN Urine Color YELLOW Urine Turbidity HAZY Urine pH 6.0 Urine Specific [place] 1.024 Urine Protein 30 mg/dL Urine Glucose (UA) TRACE mg/dL Urine Ketones TRACE mg/dL Urine Occult Blood TRACE Urine Nitrite NEG Urine Bilirubin NEG Urine Urobilinogen 4.0 MG/DL Urine Leukocyte Esterase NEG Urine RBC 2 /hpf Urine WBC 6 /hpf Urine Squamous Epithelial Cells 1 /hpf Urine Mucus FEW /lpf Microscopic Urinalysis Comment CULT NOT INDICATED Urine Opiates Screen NEG Urine Barbiturates Screen NEG Urine Amphetamines Screen NEG Urine Benzodiazepines Screen NEG Urine Cocaine Screen NEG Urine Cannabinoids Screen POS MDM Medical Record Reviewed: Yes Narrative Course / MDM Patient is 34 weeks 4 days with a history of 3 prior sections, history of 2 prior deliveries No longer taking Slime This is her fourth ED visit for nausea -has never filled antiemetic medication Plan on IV hydration with IV antiemetic therapy, no signs of recurrent labor at this time although she does have occasional contractions AMA Plan at 34w 4 days seen for nausea and vomiting UA shows min ketones. Patient is s/p IV fluids and antiemetics Zofran script given to patient with follow up to W Diagnosis Diagnosis: Primary Impression: 34 weeks gestation of Additional Impressions: Advanced maternal age in multigravida Previous delivery affecting , antepartum History of delivery, currently in third trimester Nausea and vomiting of , antepartum Polyhydramnios affecting in third trimester Disposition: 01 DISCHARGE HOME Scripts Ondansetron Odt (Zofran Odt) 8 Mg Tab 8 MG SL Q12H Y for NAUSEA OR VOMITING, #10 TAB 0 Refills Prov: Libia Coelho MD 10/04/17 Libia Coelho MD Oct 04, 2017 05:32
[2017-10-04 05:48] LABS: BICARBONATE 24.3 MEQ/L (21.0-32.0); CALCIUM 8.7 MG/DL (8.5-10.1); CREATININE 0.79 MG/DL (0.50-1.00)
[2017-10-04 06:00] LABS: HEMATOCRIT 29.3 % (35.0-46.0); HEMOGLOBIN 10.7 GM/DL (11.6-15.3); MEAN CELL VOLUME 85.5 FL (80.0-100.0); MEAN CORPUSCULAR HEMOGLOBIN 31.1 PG (27.0-34.0); MEAN PLATELET VOLUME 7.5 FL (7.0-11.0); PLATELET COUNT 332 TH/MM3 (150-450); RED BLOOD COUNT 3.43 MIL/MM3 (4.00-5.30); RED CELL DISTRIBUTION WIDTH 13.1 % (11.6-17.2); WHITE BLOOD COUNT 10.8 TH/MM3 (4.0-11.0)
[2017-10-04 06:02] LABS: MEAN CORPUSCULAR HGB CONC 36.3 % (32.0-36.0)
[2017-10-04 07:05] LABS: BILIRUBIN, URINE NEG (NEG); BLOOD, URINE TRACE (NEG); GLUCOSE,URINE TRACE mg/dL (NEG); KETONE, URINE TRACE mg/dL (NEG); MUCUS URINE FEW /lpf (OCC); NITRITE,URINE NEG (NEG); SQUAMOUS EPITHELIAL CELL URINE 1 /hpf (0-5); URINE COLOR YELLOW (YELLW/STRAW); URINE LEUKOCYTE ESTERASE NEG (NEG)
[2017-10-04] MEDS ORDERED: ZOFR8TAB4 SL (07:37)
== END 2017-10-04 07:55 | disposition home or self-care (01) ==
LOC: HOBED 04:51
DX: O09.523 Supervision of elderly multigravida, third trimester (principal); O21.9 Vomiting of pregnancy, unspecified; O40.3XX0 Polyhydramnios, third trimester, not applicable or unspecified; Z3A.34 34 weeks gestation of pregnancy; Z79.899 Other long term (current) drug therapy
CPT/HCPCS: 59025; 80048; 80307; 81001; 84112; 85027; 96361; 96374; 99283; J2405; J7120

== ENCOUNTER 2017-10-30 06:55 | Inpatient (IN) | payer MEDICARE, OTHER ==
[2017-10-30] VITALS (17 sets, daily range): BP systolic 95–117; BP diastolic 52–75; PULSE 62–89; RESP 15–20; TEMP 97.6–98.1
[~2017-10-30 06:55] MED LIST changes: +ZOFR8TAB4 SL
[2017-10-30] MEDS ORDERED: LACTATED RINGER'S 1000 ML INJ 1,000 ML IV PRN (07:27)
[2017-10-30] MEDS: LACTATED RINGER'S 1000 ML INJ 1,000 ML IV SCH ×2 (07:27→16:50)
[2017-10-30] MEDS ORDERED: CITRIC ACID-SODIUM CITRATE LIQ 30 ML UDC PO SCH ×2 (07:30→09:45)
[2017-10-30] MEDS ORDERED: SODIUM CHLORID 0.9% 500 ML INJ 500 ML IV PRN (07:30)
[2017-10-30] MEDS ORDERED: OXYTOCIN 30 UNITS-500ML PREMIX 500 ML IV ONE ×3 (07:30→11:45)
[2017-10-30] MEDS ORDERED: ONDANSETRON HCL 4 MG/2 ML VIAL IV PUSH PRN ×2 (07:30→10:00)
[2017-10-30] MEDS ORDERED: LIDOCAINE HCL 1% 50 ML VIAL INFIL PRN (07:30)
[2017-10-30] MEDS ORDERED: MINERAL OIL 10 ML VIAL TOPICAL PRN (07:30)
[2017-10-30] MEDS ORDERED: LIDOCAINE HCL 1% 50 ML VIAL I-DERMAL PRN (07:30)
[2017-10-30 07:47] LABS: AUTOMATED NEUTROPHIL # 5.3 TH/MM3 (1.8-7.7); BASOPHIL # 0.1 TH/MM3 (0-0.2); BASOPHIL % 0.9 % (0.0-2.0); EOSINOPHIL # 0.3 TH/MM3 (0-0.4); EOSINOPHIL % 3.8 % (0.0-4.0); HEMATOCRIT 30.4 % (35.0-46.0); HEMOGLOBIN 10.4 GM/DL (11.6-15.3); LYMPH % 19.4 % (9.0-44.0); LYMPHOCYTE # 1.5 TH/MM3 (1.0-4.8); MEAN CELL VOLUME 84.5 FL (80.0-100.0); MEAN CORPUSCULAR HGB CONC 34.3 % (32.0-36.0); MONOCYTE # 0.7 TH/MM3 (0-0.9); NEUT % 66.9 % (16.0-70.0); PLATELET COUNT 341 TH/MM3 (150-450); RED CELL DISTRIBUTION WIDTH 13.9 % (11.6-17.2)
[2017-10-30] MEDS ORDERED: SODIUM CHLOR 0.9% 1000 ML INJ 1,000 ML IV PRN (07:47)
--- NOTE | 2017-10-30 07:48 | HHI.HP ---
HPI Chief Complaint Scheduled repeat CS Date Seen: Oct 30, 2017 Travel History International Travel<30 Days: No Contact w/Intl Traveler<30Days: No History of Present Illness HPI 37 year old who presents for repeat CS at 38/0 weeks. OB care with [facility]. Hx Polyhydramnios, [place] contractions currently. She denies leakage of fluid, vaginal bleeding, and contractions. She feels baby moving regularly. She denies DONOVAN/N/V/D/fever/sick contacts/SOB/calf pain/dizziness/ seeing spots. OB care is with [facility]. GBS unknown: there is no result in patient's outpt chart. Weeks Gestation: 38 Para: 3 : 7 Miscarriage: 3 History Past Medical History Narrative Medical nausea vomiting, minimal weight gain this , advanced maternal age, polyhydramnios, previous section 3, 3 prior deliveries Obstetric History Obstetric History Hx 3 CS 1 of the sections had extensive into the uterine arteries [place] injections administered during current Steroids given during current Past Surgical History Narrative Surgical CS x3 Right arm orthopedic sx Family History Family History: Negative Social History Alcohol Use: No Tobacco Use: No Substance Abuse: No Allergies-Medications (Allergen,Severity, Reaction): Coded Allergies: No Known Allergies (Verified Adverse Reaction, Unknown, 09/19/17) Home Meds Active Scripts Ondansetron Odt (Zofran Odt) 8 Mg Tab, 8 MG SL Q12H Y for NAUSEA OR VOMITING, # 10 TAB 0 Refills Prov:Libia Coelho MD 10/04/17 Vit W/ Ferric Phospha (Vitafol Gummies 3.33-0.333-34.8 mg) 1 Chw Chw, 3 TAB PO DAILY, #90 BOTTLE 11 Refills Prov:Missy Alberto 03/26/17 Reported Medications Hydroxyprogesterone Caproate Inj (Slime Inj) 250 Mg/Ml Inj, 250 MG IM WEEKLY for , #1 VIAL 0 Refills 08/04/17 Narrative Medication vitamins iron Slime Citalopram 20mg, last dose ~10/27/2017 Review of Systems General / Constitutional: No: Fever, Chills Eyes: No: Blurred Vision, Visual changes HENT: No: Headaches, Vertigo Cardiovascular: No: Irregular Rhythm, Chest Pain or Discomfort, Syncope Respiratory: No: Cough, Short of Breath Gastrointestinal: No: Nausea, Vomiting, Diarrhea, Abdominal Pain Genitourinary: No: Urgency, Dysuria Musculoskeletal: No: Weakness, Edema Skin: No Rash, No Itching Neurologic: No: Weakness, Syncope Psychiatric: No: Anxiety, Depression Physical Exam Narrative GENERAL: Well-nourished, well-developed patient. SKIN: Warm and dry. HEAD: Normocephalic and atraumatic. EYES: No scleral icterus. No injection or drainage. ENT: No nasal drainage noted. Mucous membranes pink. Airway patent. NECK: Supple, trachea midline. No JVD. CARDIOVASCULAR: Regular rate and rhythm without murmurs, gallops, or rubs. RESPIRATORY: Breath sounds equal bilaterally. No accessory muscle use. ABDOMEN/GI: Abdomen soft, non-tender, bowel sounds present, no rebound, no guarding. Gravid. GENITOURINARY: deferred Membranes: intact Uterine Contractions: none FHT's: Category: 1 Baseline: 120s Reactive: 140s Variability:mod Decels: none EXTREMITIES: No cyanosis or edema. BACK: Nontender without obvious deformity. No CVA tenderness. NEUROLOGICAL: Awake and alert. Motor and sensory grossly within normal limits. Five out of 5 muscle strength in all muscle groups. Normal speech. Caprini VTE Risk Assessment Caprini VTE Risk Assessment: Mod/High Risk (score >= 2) VTE Pharm Contraindication: High risk for bleeding Caprini Risk Assessment Model Point Value = 1 Point Value = 2 Point Value = 3 Point Value = 5 Age 41-60 Minor surgery BMI > 25 kg/m2 Swollen legs Varicose veins or History of unexplained or recurrent spontaneous Oral contraceptives or hormone replacement Sepsis (< 1 month) Serious lung disease, including pneumonia (< 1 month) Abnormal pulmonary function Acute myocardial infarction Congestive heart failure (< 1 month) History of inflammatory bowel disease Medical patient at bed rest Age 61-74 Arthroscopic surgery Major open surgery (> 45 min) Laparoscopic surgery (> 45 min) Malignancy Confined to bed (> 72 hours) Immobilizing plaster cast Central venous access Age >= 75 History of VTE Family history of VTE Factor V Leiden Prothrombin [id number] Lupus anticoagulant Anticardiolipin antibodies Elevated serum homocysteine Heparin-induced thrombocytopenia Other congenital or acquired thrombophilia Stroke (< 1 month) Elective arthroplasty Hip, pelvis, or leg fracture Acute spinal cord injury (< 1 month) Prophylaxis Regimen Total Risk Factor Score Risk Level Prophylaxis Regimen 0-1 Low Early ambulation 2 Moderate Order ONE of the following: *Sequential Compression Device (SCD) *Heparin 5000 units SQ BID 3-4 Higher Order ONE of the following medications: *Heparin 5000 units SQ TID *Enoxaparin/Lovenox 40 mg SQ daily (WT < 150 kg, CrCl > 30 mL/min) *Enoxaparin/Lovenox 30 mg SQ daily (WT < 150 kg, CrCl > 10-29 mL/min) *Enoxaparin/Lovenox 30 mg SQ BID (WT < 150 kg, CrCl > 30 mL/min) AND/OR *Sequential Compression Device (SCD) 5 or more Highest Order ONE of the following medications: *Heparin 5000 units SQ TID (Preferred with Epidurals) *Enoxaparin/Lovenox 40 mg SQ daily (WT < 150 kg, CrCl > 30 mL/min) *Enoxaparin/Lovenox 30 mg SQ daily (WT < 150 kg, CrCl > 10-29 mL/min) *Enoxaparin/Lovenox 30 mg SQ BID (WT < 150 kg, CrCl > 30 mL/min) AND *Sequential Compression Device (SCD) Data Data Vital Signs Reviewed: Yes Orders Orders Admit To Inpatient (10/30/17 ) Code Status (10/30/17 07:27) Vital Signs (Adult) .Per protocol (10/30/17 07:27) Activity Oob Ad Carmita (10/30/17 07:27) Heart (10/30/17 07:27) Amnioinfusion (10/30/17 07:27) Urinary Catheter Management .ONCE (10/30/17 07:27) Diet Npo (10/30/17 Breakfast) Lactated Ringer's 1000 Ml Inj (Lr 1000 M (10/30/17 07:27) Lactated Ringer's 1000 Ml Inj (Lr 1000 M (10/30/17 07:27) Sodium Chlorid 0.9% 500 Ml Inj (Ns 500 M (10/30/17 07:30) Sodium Chlor 0.9% 1000 Ml Inj (Ns 1000 M (10/30/17 07:47) Lidocaine 1% Inj (50 Ml) (Xylocaine 1% I (10/30/17 07:30) Citric Acid-Sodium Citrate Liq (Bicitra (10/30/17 07:30) Ondansetron Inj (Zofran Inj) (10/30/17 07:30) Fentanyl Inj (Fentanyl Inj) (10/30/17 07:30) Fentanyl Inj (Fentanyl Inj) (10/30/17 07:30) Cefazolin Inj (Ancef Inj) (10/30/17 11:30) Complete Blood Count With Diff (10/30/17 07:27) Hold Clot (10/30/17 07:27) Abo/Rh Blood Type (10/30/17 07:27) Urinalysis - C+S If Indicated (10/30/17:27) Drug Screen, Random Urine (10/30/17:27) Ob/Psych Drug Screen, Urine (10/30/17:27) Resp Oxygen Non Rebreathe Mask (10/30/17 ) ^ Epidural / Intrathecal Infus (10/30/17:27) Oxytocin 30 Units-500ml Premix (Pitocin (10/30/17 07:30) Lidocaine 1% Inj (50 Ml) (Xylocaine 1% I (10/30/17 07:30) Light Mineral Oil (Muri-Lube Oil) (10/30/17 07:30) Inpatient Certification (10/30/17 ) Specimen To Be Collected PRN (10/30/17:27) Specimen To Be Collected PRN (10/30/17 07:27) Assessment/Plan Assessment and Plan 37 year old who presents for repeat CS at 38/0 weeks. This will be CS x 4. OB care with [facility]. Hx Polyhydramnios, [place] contractions. Patient initially wanted a tubal ligation along with this repeat but has since changed her mind and desires a IUD, reconfirmed today. Preop labs, Ancef, monitoring, plan for CS at 9am with Dr. Ames. Intrauterine : Category 1 tracing No CTX Will obtain CBC, T&S, UA, UDS per protocol IV fluids GBS unknown - not collected in office per records History of delivery: s/p steroids current , Slime Repeat CS: Ancef 1g IV preop, pt is 55 kg Plan 38 week repeat section patient declines tubal ligation She understands the risks of infection bleeding injury to the bowel bladder ureters and blood transfusion WDW Dr. Ames Discharge Planning 2-3 days post delivery Eladia Artis MD R2 Oct 30, 2017 07:48
[2017-10-30 07:58] LABS: BACTERIA, URINE RARE /hpf; BILIRUBIN, URINE NEG (NEG); BLOOD, URINE SMALL (NEG); GLUCOSE,URINE NEG (NEG); KETONE, URINE NEG (NEG); MUCUS URINE MOD /lpf (OCC); NITRITE,URINE NEG (NEG); PH, URINE 6.5 (5.0-8.5); SQUAMOUS EPITHELIAL CELL URINE 4 /hpf (0-5); URINE COLOR YELLOW (YELLW/STRAW); URINE LEUKOCYTE ESTERASE SMALL (NEG)
[2017-10-30] MEDS ORDERED: MORPHINE SULFATE PF 5 MG/10 ML VIAL ONE (08:19)
[2017-10-30] MEDS ORDERED: ACETAMINOPHEN 1000 MG/100 ML 100 ML IV ONE (08:20)
[2017-10-30] MEDS ORDERED: EPIDURAL-NO SYSTEMIC NARCOTICS PRN (09:05)
[2017-10-30] MEDS ORDERED: EPIDURAL-DO NOT ADMINISTER ANTICOAGULANTS PRN (09:05)
[2017-10-30] MEDS ORDERED: EPIDURAL-DIPHENHYDRAMINE HCL 50 MG CAP PO PRN (09:05)
[2017-10-30] MEDS ORDERED: EPIDURAL-NALOXONE HCL 0.4 MG/ML AMP IV PUSH PRN (09:05)
[2017-10-30] MEDS ORDERED: EPIDURAL-DIPHENHYDRAMINE HCL 50 MG/ML VIAL IV PUSH PRN (09:05)
--- NOTE | 2017-10-30 09:57 | PD.OP ---
Operative Report Date of Surgery: Oct 30, 2017 Preoperative Diagnosis: 1. IUP @ 38.0 2. h/o CSx3 (prior with large uterine window, cleared by MFM for early rCS this ) 3. AMA Postoperative Diagnosis: same Procedure: rCS Anesthesia: spinal Surgeon: Sharon Ames Retail Account Specialist(s): tech Resident Surgeon: none Operation and Findings: Antibiotics: 1g ancef DVT prophylaxis: SCDs were in place and active throughout the entire procedure EBL: 200cc IVF: 1100cc UOP: 100cc (blood tinged at end) Drain(s): Vargas to straight drain Specimen(s): cord blood Findings: significant bladder adhesions, no uterine window this time, vtx ROP male delviered at 09:24 weighin 2860g with APGARs 8/9 Complications: none Disposition: to PACU in stable condition Technique: The R/B/A were discussed with the pt, all questions answered, and consents signed. The pt was taken to the operating room where spinakl anesthesia was found to be adequate. She was then prepped and draped in the normal sterile fashion in the dorsal supine position with leftward tilt. A Pfannenstiel skin incision was then made with the scalpel and carried through to the underlying layer of fascia. The fascia was incised in the midline and the incision extended laterally with Valle scissors. The superior aspect of the fascial incision was grasped with Gertrude clamps, elevated, and the underlying rectus muscles dissected off bluntly and with Valle scissors. Attention was then turned to the inferior aspect of this incision which, in a similar fashion, was grasped, tented up with Gertrude clamps, and the rectus muscles dissected off bluntly and with Valle scissors. The rectus muscles were then in the midline, and the peritoneum identified and entered bluntly. The peritoneal incision was stretched with good visualization of the bladder and adhesions. The bladder blade was inserted and the vesicouterine peritoneum identified, grasped with pick-ups, and entered sharply with Metzenbaum scissors. This incision was extended laterally and a bladder flap created digitally. The bladder blade was then reinserted and the lower uterine segment incised in a transverse fashion with the scalpel. The uterine incision was stretched superiorly and inferiorly. The bladder blade was removed and the 's head delivered atraumatically followed by the body. Delayed cord clamping ensued for 45sec while the was dried, suctioned, and stimulated. The cord was double clamped and cut and handed off to the waiting team. The placenta expelled with manual fundal massage. The uterus was exteriorized and cleared of all clots and debris. The uterine incision was repaired with 0- vicryl in a running, locked fashion. A second layer using 0-monocryl suture was used to obtain excellent hemostasis via embrication. The posterior cul-de-sac was suctioned and the uterus was returned to the abdomen. The gutters were cleared of all clots and debris. The fascia was closed with 0-vicryl in a running fashion. The subcutaneous tissue was irrigated with saline and made hemostatic with the Bovie. The skin was closed with 4-0 monocryl. Steristrips were placed and the incision dressed appropriately. The patient tolerated the procedure well. She was taken to the recovery room in stable condition. Sponge, lap, instrument, and needle counts were correct x3. Sharon Ames MD Oct 30, 2017 09:57
[2017-10-30] MEDS ORDERED: oxyCODONE/ACETAMINOPHEN 5 MG/325 MG TAB PO PRN (10:00)
[2017-10-30] MEDS ORDERED: KETOROLAC TROMETHAMINE 60 MG/2 ML (IM) VIAL IM PRN (10:00)
[2017-10-30] MEDS ORDERED: ACETAMINOPHEN 325 MG TAB PO PRN (10:00)
[2017-10-30] MEDS ORDERED: SIMETHICONE 80 MG CHEWABLE TAB PO PRN (10:00)
[2017-10-30] MEDS ORDERED: SODIUM CHLORIDE 0.9% FLUSH 10 ML FLUSH IV FLUSH PRN (11:45)
[2017-10-30] MEDS ORDERED: ONDANSETRON HCL 4 MG/2 ML VIAL IV ONE (12:00)
[2017-10-30] MEDS ORDERED: DEXAMETHASONE SOD PHOS 4 MG/ML VIAL IV ONE (12:00)
[2017-10-30] MEDS ORDERED: KETOROLAC TROMETHAMINE 30 MG/ML (IVP) VIAL IV PUSH ONE (12:00)
[2017-10-30] MEDS ORDERED: LACTATED RINGER'S 1000 ML INJ 1,000 ML IV ONE (12:00)
[2017-10-30] MEDS ORDERED: PHENYLEPH/NS 1000 MCG/10 ML SYR IV ONE (12:00)
[2017-10-30] MEDS ORDERED: OXYTOCIN 10 UNIT/ML AMP IV ONE (12:00)
[2017-10-30] MEDS ORDERED: LACTATED RINGER'S 1000 ML INJ 1,000 ML IV SCH ×2 (14:52→16:42)
[2017-10-30] MEDS ORDERED: OXYTOCIN 30 UNITS-500ML PREMIX 500 ML IV PRN ×2 (15:00→16:45)
[2017-10-30] MEDS: oxyCODONE/ACETAMINOPHEN 5 MG/325 MG TAB PO PRN ×2 (18:11→22:04)
[2017-10-30] MEDS: IBUPROFEN 600 MG TAB PO PRN (18:11)
[2017-10-30] MEDS: hydrOXYzine HCL 50 MG TAB PO PRN (18:11)
[2017-10-30] MEDS ORDERED: SODIUM CHLORIDE 0.9% FLUSH 10 ML FLUSH IV FLUSH SCH (21:00)
[2017-10-31] VITALS: BP 102/63; PULSE 63; RESP 18; TEMP 98
[2017-10-31] MEDS: IBUPROFEN 600 MG TAB PO PRN ×4 (00:10→18:40)
[2017-10-31] MEDS: hydrOXYzine HCL 50 MG TAB PO PRN ×2 (00:15→05:58)
[2017-10-31] MEDS: oxyCODONE/ACETAMINOPHEN 5 MG/325 MG TAB PO PRN ×5 (01:58→20:53)
[2017-10-31 04:00] VITALS: BP 92/57; PULSE 67; RESP 18; TEMP 98.8
[2017-10-31 04:56] LABS: AUTOMATED NEUTROPHIL # 8.2 TH/MM3 (1.8-7.7); BASOPHIL % 0.4 % (0.0-2.0); EOSINOPHIL # 0.1 TH/MM3 (0-0.4); EOSINOPHIL % 0.6 % (0.0-4.0); HEMOGLOBIN 8.4 GM/DL (11.6-15.3); LYMPH % 13.6 % (9.0-44.0); LYMPHOCYTE # 1.5 TH/MM3 (1.0-4.8); MEAN CELL VOLUME 84.4 FL (80.0-100.0); MEAN CORPUSCULAR HEMOGLOBIN 28.5 PG (27.0-34.0); MEAN CORPUSCULAR HGB CONC 33.7 % (32.0-36.0); MEAN PLATELET VOLUME 7.8 FL (7.0-11.0); MONO % 9.2 % (0.0-8.0); NEUT % 76.2 % (16.0-70.0); PLATELET COUNT 243 TH/MM3 (150-450); RED BLOOD COUNT 2.96 MIL/MM3 (4.00-5.30); RED CELL DISTRIBUTION WIDTH 13.9 % (11.6-17.2); WHITE BLOOD COUNT 10.7 TH/MM3 (4.0-11.0)
[2017-10-31] MEDS: DOCUSATE SODIUM 50 MG/SENNA 8.6 MG TAB PO PRN ×2 (05:57→20:53)
[2017-10-31 06:00] VITALS: BP 105/65; PULSE 62; RESP 18; TEMP 98
--- NOTE | 2017-10-31 09:51 | HHI.OB ---
Subjective Remarks 37 year old female s/p C/S at 38 wks gestation for AMA, POD 1. AFVSS. Patient reports she is feeling well. Bleeding is decreasing and pain is well- controlled. She is breast feeding and bonding well with baby. Ambulating without difficulties. She is tolerating a diet without nausea or vomiting. She has had a bowel movement. She has passed gas. Denies chest pain, dysuria, shortness of breath, or calf pain. RN notes labial edema. Objective Vitals/I&O Vital Signs Date Time Temp Pulse Resp B/P (MAP) Pulse Ox O2 Delivery O2 Flow Rate FiO2 10/31/17 06:00 62 105/65 (78) 10/31/17 06:00 98.0 18 10/31/17 04:00 98.8 67 18 92/57 (69) 10/31/17 00:00 98.0 63 18 102/63 (76) 10/30/17 22:00 98.0 10/30/17 22:00 82 18 106/61 (76) 10/30/17 16:00 98.0 73 20 10/30/17 16:00 117/58 (77) 10/30/17 11:25 64 20 108/70 (83) 10/30/17 11:10 97.6 10/30/17 10:50 62 96/52 (67) 10/30/17 10:49 17 10/30/17 10:39 64 98/56 (70) 10/30/17 10:34 18 10/30/17 10:22 67 10/30/17 10:17 15 97/54 (68) 10/30/17 09:56 104/60 (75) 10/30/17 09:56 71 102/59 (73) 10/30/17 09:56 97.8 17 10/30/17 09:55 69 18 102/59 (73) Result Diagram: 10/31/17 0427 Objective Remarks GENERAL: Well-nourished, well-developed patient. CARDIOVASCULAR: Regular rate and rhythm without murmurs, gallops, or rubs. RESPIRATORY: Breath sounds equal bilaterally. No accessory muscle use. ABDOMEN/GI: Abdomen soft, non-tender, bowel sounds present. Incision: Clean, dry and intact. Fundus: Firm, moderately tender at umbilicus. GENITOURINARY: Light to moderate bleeding. EXTREMITIES: No cyanosis or edema, non-tender, without signs of DVT. Medications and IVs Current Medications Medications (Trade) Dose Ordered Sig/Jude Route Start Time Stop Time Status Last Admin Lactated Ringer's 1,000 ml @ 125 mls/hr Q8H IV 10/30/17 07:27 10/30/17 16:50 Lactated Ringer's 1,000 ml @ 3,000 mls/hr Q20M PRN IV 10/30/17 07:27 10/30/17 08:12 Sodium Chloride 1,000 ml @ 100 mls/hr Q10H PRN IV 10/30/17 07:47 (Xylocaine 1% Inj (50 ml)) 0.1 ml UNSCH X1 PRN I-DERMAL 10/30/17 07:30 11/02/17 07:29 (fentaNYL INJ) 50 mcg Q1H PRN IV PUSH 10/30/17 07:30 (fentaNYL INJ) 100 mcg Q1H PRN IV PUSH 10/30/17 07:30 (Xylocaine 1% Inj (50 ml)) 10 ml UNSCH X1 PRN INFIL 10/30/17 07:30 11/01/17 07:29 (Muri-Lube Oil) 10 ml UNSCH PRN TOPICAL 10/30/17 07:30 (Bicitra Liq) 30 ml SU[employer]ER PO 10/30/17 09:45 11/03/17 09:44 10/30/17 08:27 Cefazolin Sodium 1000 mg/Sodium Chloride 100 ml @ 200 mls/hr [employer] INST[employer]ER IV 10/30/17 09:15 11/03/17 09:14 (Mylicon Chew) 80 mg QID PRN PO 10/30/17 10:00 10/31/17 09:35 (Tylenol) 650 mg Q6H PRN PO 10/30/17 10:00 (Motrin) 600 mg Q6H PRN PO 10/30/17 10:00 10/31/17 05:58 (Toradol Inj) 30 mg Q6H PRN IM 10/30/17 10:00 10/31/17 09:59 (Percocet 5-325 Mg) 1 tab Q4H PRN PO 10/30/17 10:00 (Percocet 5-325 Mg) 2 tab Q4H PRN PO 10/30/17 10:00 10/31/17 05:57 (Galilea-Colace) 2 tab Q12H PRN PO 10/30/17 10:00 10/31/17 05:57 (M-M-R Ii Inj) 0.5 ml ONCE ONCE SQ 10/31/17 16:00 10/31/17 16:01 (Boostrix Inj) 0.5 ml ONCE ONCE IM 10/31/17 16:00 10/31/17 16:01 (Zofran Inj) 4 mg Q6H PRN IV PUSH 10/30/17 10:00 Lactated Ringer's 1,000 ml @ 100 mls/hr Q10H IV 10/30/17 16:42 10/31/17 12:41 Oxytocin 500 ml @ 100 mls/hr UNSCH X1 PRN IV 10/30/17 16:45 10/31/17 16:44 (NS Flush) 2 ml BID IV FLUSH 10/30/17 21:00 (NS Flush) 2 ml UNSCH PRN IV FLUSH 10/30/17 11:45 (Atarax) 50 mg Q6H PRN PO 10/30/17 17:45 10/31/17 05:58 Assessment/Plan Assessment and Plan 37 yo female s/p C/S, POD 1 - AFVSS - Post-op Hgb 8.4, no anemia symptoms, will monitor clinically - Continue routine care - Motrin and Percocet PRN pain - Encourage OOB - Pelvic rest x 6 wks. Will need 1 week incision check. - Contraception: Undecided [facility] Discharge Planning Home 11/01 or 11/02 Jorden Wylie MD R2 Oct 31, 2017 09:51
[2017-10-31] MEDS: LACTATED RINGER'S 1000 ML INJ 1,000 ML IV SCH (11:52)
[2017-10-31] MEDS ORDERED: MEASLES, MUMPS, RUBELLA VACCINE 0.5 ML VIAL SQ ONE (16:00)
[2017-10-31] MEDS ORDERED: DIPHTH/TETANUS/ACEL PERTUSSIS (BOOSTER) 0.5 ML VIAL/PFS IM ONE (16:00)
[2017-10-31 20:00] VITALS: BP 108/77; PULSE 79; RESP 18; TEMP 98
[2017-11-01] MEDS: IBUPROFEN 600 MG TAB PO PRN ×2 (03:26→08:59)
[2017-11-01] MEDS: oxyCODONE/ACETAMINOPHEN 5 MG/325 MG TAB PO PRN ×2 (03:26→08:59)
--- NOTE | 2017-11-01 08:04 | HHI.OB ---
Subjective Remarks 37 year old female s/p C/S at 38 wks gestation, POD 2. AFVSS. Patient reports she is feeling well. Bleeding is decreasing. She is formula feeding and bonding well with baby. Ambulating without difficulties. She is tolerating a diet without nausea or vomiting. She has not had a bowel movement. She has passed gas. Denies chest pain, dysuria, shortness of breath, or calf pain. Noting severe cramping pelvic pain. Objective Vitals/I&O Vital Signs Date Time Temp Pulse Resp B/P (MAP) Pulse Ox O2 Delivery O2 Flow Rate FiO2 10/31/17 20:00 98.0 79 18 108/77 (87) Result Diagram: 10/31/17 0427 Objective Remarks GENERAL: Well-nourished, well-developed patient. CARDIOVASCULAR: Regular rate and rhythm without murmurs, gallops, or rubs. RESPIRATORY: Breath sounds equal bilaterally. No accessory muscle use. ABDOMEN/GI: Abdomen soft, non-tender, bowel sounds present. Incision: Clean, dry and intact. Fundus: Firm, moderately tender at 2-3 cm below umbilicus. GENITOURINARY: Light to moderate bleeding. EXTREMITIES: No cyanosis or edema, non-tender, without signs of DVT. Medications and IVs Current Medications Medications (Trade) Dose Ordered Sig/Jude Route Start Time Stop Time Status Last Admin Lactated Ringer's 1,000 ml @ 125 mls/hr Q8H IV 10/30/17 07:27 10/30/17 16:50 Lactated Ringer's 1,000 ml @ 3,000 mls/hr Q20M PRN IV 10/30/17 07:27 10/30/17 08:12 Sodium Chloride 1,000 ml @ 100 mls/hr Q10H PRN IV 10/30/17 07:47 (Xylocaine 1% Inj (50 ml)) 0.1 ml UNSCH X1 PRN I-DERMAL 10/30/17 07:30 11/02/17 07:29 (fentaNYL INJ) 50 mcg Q1H PRN IV PUSH 10/30/17 07:30 (fentaNYL INJ) 100 mcg Q1H PRN IV PUSH 10/30/17 07:30 (Muri-Lube Oil) 10 ml UNSCH PRN TOPICAL 10/30/17 07:30 (Bicitra Liq) 30 ml [employer] WORKER PO 10/30/17 09:45 11/03/17 09:44 10/30/17 08:27 Cefazolin Sodium 1000 mg/Sodium Chloride 100 ml @ 200 mls/hr [employer] WORKER IV 10/30/17 09:15 11/03/17 09:14 (Mylicon Chew) 80 mg QID PRN PO 10/30/17 10:00 10/31/17 09:35 (Tylenol) 650 mg Q6H PRN PO 10/30/17 10:00 (Motrin) 600 mg Q6H PRN PO 10/30/17 10:00 11/01/17 03:26 (Percocet 5-325 Mg) 1 tab Q4H PRN PO 10/30/17 10:00 (Percocet 5-325 Mg) 2 tab Q4H PRN PO 10/30/17 10:00 11/01/17 03:26 (Galilea-Colace) 2 tab Q12H PRN PO 10/30/17 10:00 10/31/17 20:53 (Zofran Inj) 4 mg Q6H PRN IV PUSH 10/30/17 10:00 (NS Flush) 2 ml BID IV FLUSH 10/30/17 21:00 (NS Flush) 2 ml UNSCH PRN IV FLUSH 10/30/17 11:45 (Atarax) 50 mg Q6H PRN PO 10/30/17 17:45 10/31/17 05:58 Assessment/Plan Assessment and Plan 37 yo female s/p C/S, POD 2 - AFVSS - Post-op Hgb 8.4, no anemia symptoms, will monitor clinically - Continue routine care - Motrin and Percocet PRN pain - Encourage OOB - Pelvic rest x 6 wks. Will need 1 week incision check. - Contraception: Undecided Discharge Planning Home 11/01 or 11/02 Jorden Wylie MD R2 Nov 01, 2017 08:04
[2017-11-01 08:45] VITALS: BP 112/69; PULSE 79; RESP 16; TEMP 98
== END 2017-11-01 11:50 | disposition home or self-care (01) | DRG 766 ==
LOC: H2EB 06:55 → H1EA 11:17
PROVIDERS: ADMIT Obstetrics & Gynecology; ATTEND Obstetrics & Gynecology
PROC: 10D00Z1 Extraction of Products of Conception, Low, Open Approach (ICD-10-PCS; principal; 2017-10-30)
DX: O34.211 Maternal care for low transverse scar from previous cesarean delivery (principal); Z37.0 Single live birth; Z3A.38 38 weeks gestation of pregnancy
CPT/HCPCS: 59025; 80307; 81001; 85025; 86900; 86901; 90715; J0131; J0690; J1100; J1200; J1885; J2274; J2370; J2405; J2590; J7120